=== PATIENT | female | born 1965 | race Caucasian/White ===

== ENCOUNTER 2019-01-12 08:31 | Day surgery (SDC) | payer BC, SELFPAY ==
[2019-01-12] VITALS (8 sets, daily range): BP systolic 112–129; BP diastolic 67–105; PULSE 59–66; RESP 14–16; TEMP 36.4–36.5; O2SAT 96–100; BMI 31.4
--- NOTE | 2019-01-12 10:20 | RAD_ITS ---
STUDY: X-RAY - RIGHT FOOT CLINICAL: Female, 53 years old. TECHNIQUE: view(s) of the foot. COMPARISON: None. FINDINGS: The initial study revealed evidence of metallic foreign body (please of needle). Superimposing the cuboid bone. Later images showed the foreign body is no longer identified. RAD/Fluoro Guided Needle Placement IMPRESSION: Successful removal of a metallic foreign body that was superimposing the cuboid bone of the right foot. Electronically Signed: Marie Porter, at 12:53 EDT Tel , Service support ,
--- NOTE | 2019-01-12 11:17 | DCINST_ITS ---
Discharge Activity: Return to Normal Activity Return to work on:: 01/13/19November shower in (days): 1 Weight Bearing Status: Weight bearing as tolerated Allergies/Adverse Reactions: Allergies No Known Allergies Allergy (Verified 01/07/19 14:19) Medications to take at Discharge Cholecalciferol (Vitamin D3) [Vitamin D3] 1 tab PO QWEEK 01/07/19 Pantoprazole Sodium [Protonix] 40 mg PO DAILY 01/07/19 Primary Care Physician: Tommy Parrish MD [Primary Care Provider] - Test Results: Test results from this visit will be discussed in further detail at your follow- up appointment, if applicable. Please Follow Up With: Gerardo Markham DPM When: 1 month or prn
--- NOTE | 2019-01-12 22:29 | PCM.OPRPT ---
Report of Operation Date of Procedure: 01/12/19 Pre-Operative Diagnosis: arthritis of right midfoot Post-Operative Diagnosis: arthritis of right midfoot Surgery/Procedure Performed:: xray guided midfoot, right lower extremity Description of Surgical Findings:: arthritis of right midfoot Type of Anesthesia:: MAC Special Medications: none Specimen's removed: none Drains: none Estimated Blood Loss (mL): none Fluids Replaced: none Description of Procedure: Patient is a 53 year old female who complains of pain across the right midfoot. patient has had pain for several months and it not progressing with current conservative care. she has tried nsaids, tylenol, boot immobilization and oral steroid. despite conservative care, she continues to complain of pain. xrays of right foot has been performed and confirms arthritis of right midfoot. I have discussed xray guided injection vs obtaining mri to assure no stress injury of bone. patient would like to proceed with injection. discussed risk of injection not limited to bleeding, infection, failure to relieve pain, reduction of pain but develop recurrence, need for repeat injection vs need for surgical arthrodesis of midfoot. patient understands risks of procedure and consents to proceed. all questions have been answered and no guarantees expressed. patient was transferred from pre-op holding area to operating room and placed on operating room table in supine position. she was identified by name and procedure. she was placed under mac anesthesia. the right lower extremity was then prepped and draped in usual aseptic technique. attention was then directed to the right foot. the right tarsal metatarsal joint was identified via c-arm flouroscopy. the right midfoot was then injected with 0.5 cc of kenalog, 0.5 cc of dexamethazone and 0.5 cc of 0.5 % marcaine plain. injection was successfully administered to midfoot. a band aid was then applied to right foot. patient was then awakened and found to be in stable condition. she will resume normal activity. She will f/u in 1 month or sooner if problems develop. - Complications none
== END 2019-01-12 13:06 | disposition home or self-care (01) ==
LOC: SDC 08:33 → AC 08:34
PROVIDERS: Family Provider Family Medicine; PCP Family Medicine; Referring Provider Podiatrist Foot & Ankle Surgery; Visit Provider Podiatrist Foot & Ankle Surgery
PROC: (CPT 20605; principal; 2019-01-12 10:10)
DX: M13.871 Other specified arthritis, right ankle and foot (principal); K21.9 Gastro-esophageal reflux disease without esophagitis; E78.00 Pure hypercholesterolemia, unspecified; K57.30 Diverticulosis of large intestine without perforation or abscess without bleeding; J45.20 Mild intermittent asthma, uncomplicated
CPT/HCPCS: 20604; 76000; 77002; J7120